=== PATIENT | female | born 1980 | race Two or more races ===

== ENCOUNTER 2022-05-02 10:56 | Emergency (ER) | payer MEDICAID, OTHER ==
[~2022-05-02] VITALS: Ht 160 cm; Wt 68.0 kg
[2022-05-02 11:49] VITALS: BP 106/62
== END 2022-05-02 17:31 | disposition left against medical advice (07) ==
LOC: ER 11:03 → EDBD 11:03 → ER 17:31
DX: R41.0 Disorientation, unspecified (principal)
CPT/HCPCS: 99283

== ENCOUNTER 2022-05-02 17:04 | Emergency (ER) | payer MEDICAID, OTHER ==
[~2022-05-02] VITALS: Ht 167.6 cm; Wt 62.0 kg
[2022-05-03 00:10] VITALS: BP 93/40
== END 2022-05-03 02:00 | disposition home or self-care (01) ==
LOC: ER 17:04
DX: S00.83XA Contusion of other part of head, initial encounter (principal); W01.198A Fall on same level from slipping, tripping and stumbling with subsequent striking against other object, initial encounter; Y93.01 Activity, walking, marching and hiking; Y92.89 Other specified places as the place of occurrence of the external cause
CPT/HCPCS: 99281